=== PATIENT | female | born 1985 | race Caucasian/White ===

== ENCOUNTER 2020-05-08 18:45 | Emergency (ER) | payer OTHER ==
[~2020-05-08] VITALS: Ht 165.1 cm; Wt 63.5 kg
[~2020-05-08 18:45] MED LIST: CEPH500 PO; IBUP800 PO; MULVITMINE; OXYACE5T PO; PROM25 PO
== END 2020-05-08 19:51 | disposition home or self-care (01) ==
LOC: ER 18:45
DX: T78.40XA Allergy, unspecified, initial encounter (principal); Z88.2 Allergy status to sulfonamides; Z79.899 Other long term (current) drug therapy; Z87.891 Personal history of nicotine dependence; Z88.0 Allergy status to penicillin
CPT/HCPCS: 96372; 99282-25; A9270; J1100